=== PATIENT | male | born 1980 | race African-American/Black ===

== ENCOUNTER 2018-03-30 10:58 | Emergency (ER) | payer OTHER ==
[2018-03-30 11:23] VITALS: BP 125/74; PULSE 62; TEMP 98.3; BMI 24.3
[2018-03-30] MEDS ORDERED: TETRACAINE 0.5% HCL 0.6ML DROPPER.BOTTLE OS ONE (11:50)
--- NOTE | 2018-03-30 12:09 | PDOC ---
History of Present Illness - General Chief Complaint: Eye Problem Stated Complaint: SWOLLEN LT EYE Time Seen by Provider: 03/30/18 11:27 History Source: Patient Exam Limitations: No Limitations - History of Present Illness Initial Comments: 03/30/18 12:14 Best Contact: PCP:No PMD Pmhx:N/A Pshx: Greater than 10 years ago: Right inguinal hernia repair Allergies:NKDA FH:N/A Social Hx: Cigarettes/ 0 Alcohol/ 0 Drugs/0 LMP:N/A 37-year-old male presents to the emergency department complaining of swelling to the left eye with itchiness after having [employer] ice cream. Patient states this is the second time he had a reaction donuts ice cream. Patient denies fever, chills, nausea/vomiting, sore throat, throat swelling/tightening sensation, difficulty swallowing. Patient states he took one tablet Benadryl which helped the itch. Past History - Past Medical History Allergies/Adverse Reactions: Allergies Allergy/AdvReac Type Severity Reaction Status Date / Time No Known Allergies Allergy Verified 03/30/18 11:12 Home Medications: Ambulatory Orders Methylprednisolone [Medrol Dose Robel] 4 mg PO ASDIR #21 tablet 03/30/18 Ranitidine HCl [Zantac] 150 mg PO DAILY #6 tablet 03/30/18 COPD: No - Surgical History Abdominal Surgery: Yes (hernia) - Immunization History Immunization Up to Date: Yes - Suicide/Smoking/Psychosocial Hx Smoking History: Never smoked Have you smoked in the past 12 months: No Hx Alcohol Use: No Drug/Substance Use Hx: No Substance Use Type: None Review of Systems - Review of Systems Able to Perform ROS?: Yes Comments:: 03/30/18 12:51 CONSTITUTIONAL: Absent: fever, chills, diaphoresis, generalized weakness, malaise, loss of appetite HEENT: +swelling to left upper eyelid Absent: rhinorrhea, nasal congestion, throat pain, throat swelling, difficulty swallowing, mouth swelling, ear pain, eye pain, visual Changes CARDIOVASCULAR: Absent: chest pain, loss of consciousness, palpitations, irregular heart rate, peripheral edema RESPIRATORY: Absent: cough, shortness of breath, dyspnea with exertion, orthopnea, wheezing, stridor, hemoptysis GASTROINTESTINAL: Absent: abdominal pain, abdominal distension, nausea, vomiting, diarrhea, constipation, melena, hematochezia GENITOURINARY: Absent: dysuria, frequency, urgency, hesitancy, hematuria, flank pain, genital pain MUSCULOSKELETAL: Absent: myalgia, arthralgia, joint swelling SKIN: Absent: rash, itching, pallor HEMATOLOGIC/IMMUNOLOGIC: Absent: easy bleeding, easy bruising, lymphadenopathy, frequent infections ENDOCRINE: Absent: unexplained weight gain, unexplained weight loss, heat intolerance, cold intolerance NEUROLOGIC: Absent: headache, focal weakness or paresthesias, dizziness, unsteady gait, seizure, mental status changes, bladder or bowel incontinence Is the patient limited [place] proficient: No *Physical Exam - Vital Signs Last Vital Signs Temp Pulse Resp BP Pulse Ox 98.3 F 62 18 125/74 100 03/30/18 11:12 03/30/18 11:12 03/30/18 11:12 03/30/18 11:12 03/30/18 11:12 - Physical Exam Comments: 03/30/18 12:51 GENERAL: Well developed, well nourished. Awake and alert. No acute distress. HEENT: Normocephalic, atraumatic. PERRLA, EOMI. No conjunctival pallor. Sclera are non- icteric. Moist mucous membranes. Oropharynx is clear. NECK: Supple. Full ROM. No JVD. Carotid pulses 2+ and symmetric, without bruits. No thyromegaly. No lymphadenopathy. CARDIOVASCULAR: Regular rate and rhythm. No murmurs, rubs, or gallops. Distal pulses are 2+ and symmetric. PULMONARY: No evidence of respiratory distress. Lungs clear to auscultation bilaterally. No wheezing, rales or rhonchi. ABDOMINAL: Soft. Non-tender. Non-distended. No rebound or guarding. No organomegaly. Normoactive bowel sounds. MUSCULOSKELETAL Normal range of motion at all joints. No bony deformities or tenderness. No CVA tenderness. EXTREMITIES: No cyanosis. No clubbing. No edema. No calf tenderness. SKIN: Warm and dry. Normal capillary refill. No rashes. No jaundice. Left eye: External exam: Bilateral ice Liliana Fox without proptosis or throat proptosis. Conjunctiva/sclera: Negative injection, sclera is white and nonicteric Lids/lacrimation: Left upper blepharitis Eyelids everted: Negative capillary bumps Cornea: No abrasion/erosion appreciated Iris: Flat and round Lens: Clear, non-hazy ED Treatment Course - Medications Given in the ED: ED Medications Discontinued Medications Generic Name Dose Route Start Last Admin Trade Name Gabriela PRN Reason Stop Dose Admin Tetracaine HCl 1 drop 03/30/18 11:50 03/30/18 11:57 Tetravisc 0.5% Eye Drops - OS 03/30/18 11:51 1 drop ONCE ONE Administration Medical Decision Making - Medical Decision Making 03/30/18 12:57 37-year-old male presents to the emergency department complaining of swelling/ pruritic left upper eyelid after having ice cream from [employer]. Patient states similar symptoms 6 months ago after having the same type of ice cream from [employer]. Patient denies shortness of breath, chest pain, sore throat , difficulty swallowing, throat swelling, rash. Patient will take Medrol Dosepak with Benadryl and Zyrtec in the morning for comfort care *DC/Admit/Observation/Transfer Diagnosis at time of Disposition: Eye swelling, left - Discharge Dispostion Disposition: HOME Condition at time of disposition: Stable Decision to Admit order: No - Prescriptions Prescriptions: Ranitidine HCl [Zantac] 150 mg PO DAILY #6 tablet - Referrals Referrals: Spencer Lemus MD [Staff Physician] - - Patient Instructions Additional Instructions: Avoid eating ice cream from the same location that has caused this reaction twice today Take Benadryl as needed for the itch but be aware that it will cause drowsiness so avoid using heavy machinery or driving You can take Zyrtec in the morning for the itch Follow-up with your physician within 2 days Return back to the ER for severe/persistent or worsening symptoms - Post Discharge Activity
== END 2018-03-30 12:39 | disposition home or self-care (01) ==
LOC: JER 10:58
DX: H02.844 Edema of left upper eyelid (principal)
CPT/HCPCS: 99281-25